=== PATIENT | female | born 1985 | race Hispanic/Latino ===

== ENCOUNTER 2018-03-03 15:42 | Emergency (ER) | payer OTHER | END 2018-03-03 16:43 | disposition home or self-care (01) | LOC: EDH 15:42 | DX: N61.0 Mastitis without abscess (principal); Z88.6 Allergy status to analgesic agent; Z88.8 Allergy status to other drugs, medicaments and biological substances | CPT/HCPCS: 81025 ==

== ENCOUNTER 2018-04-06 11:22 | Emergency (ER) | payer OTHER ==
[2018-04-06 12:14] LABS: APPEARANCE,URINE Cloudy (CLEAR); BILIRUBIN,URINE Negative (NEGATIVE); COLOR,URINE Yellow (YELLOW); GLUCOSE, URINE (UA) Negative (NEGATIVE); KETONES,URINE Trace mg/dL (NEGATIVE); LEUKOCYTE ESTERASE ,URINE Large (NEGATIVE); NITRATE,URINE Negative (NEGATIVE); OCCULT BLOOD,URINE Negative (NEGATIVE); PH,URINE 6.5 (5.0-8.0); PROTEIN,URINE Negative (NEGATIVE)
[2018-04-06 12:20] LABS: HCG,QUAL RESULT POSITIVE (NEGATIVE)
[2018-04-06 12:47] LABS: BACTERIA,URINE Few /HPF (None Seen); MUCUS,URINE Few LPF (None Seen); RBC,URINE 0-1 /HPF (0-1); SQUAMOUS EPITHELIAL CELL,UR Moderate /HPF (0-2); WBC,URINE 26-50 /HPF (0-1)
== END 2018-04-06 12:46 | disposition home or self-care (01) ==
LOC: EDH 11:22
DX: O23.41 Unspecified infection of urinary tract in pregnancy, first trimester (principal); Z3A.09 9 weeks gestation of pregnancy; Z88.6 Allergy status to analgesic agent
CPT/HCPCS: 81001; 81025

== ENCOUNTER 2023-09-05 23:45 | Emergency (ER) | payer MEDICAID, OTHER ==
[~2023-09-05] VITALS: Ht 152.4 cm; Wt 108.9 kg
[2023-09-06] MEDS: SOLU-MEDROL 125MG VIAL IVP ONE (00:12)
[2023-09-06] MEDS: FAMOTIDINE 20MG VIAL IV STA (00:12)
[2023-09-06 00:13] VITALS: BP 114/65; PULSE 89; RESP 20; O2SAT 98
[2023-09-06] MEDS: 0.9% NACL 500ML IV.SOLN 500 ML IV ONE (00:13)
[2023-09-06] MEDS: DiphenhydrAMINE HCL 50 MG/ML VIAL IV ONE (00:13)
[2023-09-06] MEDS: PREDNISOLONE 15 MG/5 ML SOLN PO STA (00:13)
[2023-09-06] MEDS: EPINEPHRINE PF 1MG (1:1,000) 1 MG/ML AMP ONE (00:16)
[2023-09-06] MEDS: EPINEPHRINE PF 1MG (1:1,000) 1 MG/ML AMP IM ONE (00:16)
[2023-09-06] MEDS ORDERED: EPIN0.3P3 IJ (01:50)
[2023-09-06] MEDS ORDERED: PRED10TA23 PO (01:50)
[2023-09-06] MEDS ORDERED: LORA10TA7 PO (01:50)
== END 2023-09-06 02:02 | disposition home or self-care (01) ==
LOC: EDH 23:45
DX: R22.0 Localized swelling, mass and lump, head (principal); T39.015A Adverse effect of aspirin, initial encounter; Z88.6 Allergy status to analgesic agent; Z88.8 Allergy status to other drugs, medicaments and biological substances; Y92.89 Other specified places as the place of occurrence of the external cause
CPT/HCPCS: 99284; 96374; 96375; 96372; J1200; J3490; J2919; J0171